=== PATIENT | female | born 1990 | race African-American/Black ===

== ENCOUNTER 2021-08-02 07:42 | Observation (INO) | payer OTHER ==
[2021-08-02] MEDS ORDERED: Morphine 4 MG/ML VIAL ONE ×3 (07:53→10:20)
[2021-08-02] MEDS ORDERED: Ondansetron PF 4 MG/2 ML Vial ONE ×3 (07:54→12:22)
[2021-08-02 08:16] LABS: #Eosinphils 0.2 10x3/uL (0.0-0.5); #Monocytes 0.4 10x3/uL (0.0-1.1); #Neutrophils 5.4 10x3/uL (1.5-8.4); %Basophils 0.5 % (0.0-2.0); %Eosinophils 3.1 % (0.0-6.0); %Lymphocytes 17.7 % (18.0-47.0); %Monocytes 4.9 % (0.0-10.0); %Neutrophils 73.4 % (40.0-75.0); Hemoglobin 13.5 g/dL (12.0-15.5); Mean Corpuscular HGB CONC 31.5 g/dL (32.0-36.0); Mean Corpuscular Hemoglobin 28.7 pg (27.0-33.0); Mean Corpuscular Volume 91.1 fl (81.6-98.3); Mean Platelet Volume 9.7 fl (7.4-10.4); Platelet Count 262 10x3/uL (150-450); RBC Distribution Width 14.2 % (11.5-14.5); White Blood Cell (WBC) Count 7.4 10x3/uL (3.5-10.5)
[2021-08-02 08:18] LABS: BHCG - Serum Negative (NEGATIVE); Pregs Control Background? CLEAR/WHITE (CLR/WHITE); Pregs Control Bar Appear? YES (CONTROL BAR)
[2021-08-02 08:25] LABS: ALT (SGPT) 28 U/L (8-55); AST (SGOT) 26 U/L (5-34); Albumin 4.1 g/dL (3.5-5.0); Alkaline Phosphatase 83 U/L (40-110); Anion Gap 12 mmol/L (10-20); BUN (Urea Nitrogen) 11 mg/dL (7.0-18.7); Bilirubin, Total 0.4 mg/dL (0.2-1.2); Calc. Creatinine Clearance 0 mL/min (70-130); Carbon Dioxide 24 mmol/L (22-29); Chloride 108 mmol/L (98-107); Globulin 3.3 g/dL (2.4-3.5); Glucose 116 mg/dL (70-105); Lipase 26 U/L (8-78); Potassium 3.7 mmol/L (3.5-5.1); Protein, Total 7.4 g/dL (6.0-8.3); Sodium 140 mmol/L (136-145)
[2021-08-02] MEDS ORDERED: Ketorolac Tromethamine 30 MG/ML VIAL ONE (08:51)
[2021-08-02 09:08] LABS: Bilirubin Neg (Negative); Blood, Urine 250 (Negative); Clarity Cloudy (Clear); Glucose, Urine (Dipstick) Normal (Negative); Ketone, Urine Negative (Negative); Leukocyte 500 (Negative); Nitrite Positive (Negative); Protein, Urine (Dipstick) 15 mg/dl (Neg-Trace); Specific Gravity, Urine 1.025 (1.002-1.036); Urobilinogen Normal mg/dL (Less than 2)
[2021-08-02 09:19] LABS: RBC/HPF 21-50 HPF (0-3); WBC/HPF Greater Than 50 HPF (0-3)
[2021-08-02 09:20] LABS: Bacteria/HPF 4+ HPF (None Seen)
[2021-08-02 09:21] LABS: Calcium Oxalate Crystals Rare HPF (None Seen)
[2021-08-02] MEDS ORDERED: cefTRIAXone\\ROCEPHIN 2 GM VIAL ONE (11:01)
[2021-08-02] MEDS ORDERED: Iopamidol 15 ML ONE (11:45)
[2021-08-02] MEDS ORDERED: Lidocaine 2% PF 5 ML VIAL ONE (12:02)
[2021-08-02] MEDS ORDERED: PROPOFOL 0 ML ONE (12:02)
[2021-08-02] MEDS ORDERED: Fentanyl 100 MCG/2 ML VIAL ONE (12:02)
[2021-08-02 12:06] LABS: SARS-CoV-2 NAA Rapid Test Not Detected (NotDetected)
[2021-08-02] MEDS ORDERED: Dexamethasone 20 MG/5 ML VIAL ONE (12:22)
[2021-08-02] MEDS ORDERED: PROPOFOL 20 ML ONE ×2 (12:24→12:25)
[2021-08-02] MEDS ORDERED: Hyoscyamine Sulfate SL 0.125 mg Tablet SL PRN (14:14)
[2021-08-02] MEDS ORDERED: diphenhydrAMINE 50 MG/ML VIAL IVP PRN (14:14)
[2021-08-02] MEDS ORDERED: Zolpidem Tartrate 5 MG TAB PO PRN (14:14)
[2021-08-02] MEDS ORDERED: Ondansetron PF 4 MG/2 ML Vial IVP PRN (14:14)
[2021-08-02] MEDS: Morphine 4 MG/ML VIAL SLOW IVP PRN ×2 (14:34→22:03)
[2021-08-02] MEDS: HYDROcodone/Acetaminophen 5/325 mg Tablet PO PRN ×2 (14:35→18:45)
[2021-08-02] MEDS ORDERED: FLU VACC QS2021-22(6MOS UP)/PF 60 MCG/0.5 ML SYRINGE IM ONE (16:15)
[2021-08-02] MEDS: Ketorolac Tromethamine 30 MG/ML VIAL IVP SCH ×2 (18:44→23:58)
[2021-08-02] MEDS: D5 1/2 NS w/20 mEq KCL 1,000 ML IV SCH ×2 (18:45→20:41)
[2021-08-02] MEDS: Docusate 100 MG CAP PO SCH (20:45)
[2021-08-03] MEDS: Ketorolac Tromethamine 30 MG/ML VIAL IVP SCH (06:11)
[2021-08-03] MEDS: D5 1/2 NS w/20 mEq KCL 1,000 ML IV SCH (06:47)
[2021-08-03 07:49] VITALS: BP 108/58; TEMP 96.5
[2021-08-03] MEDS ORDERED: Tamsulosin HCl 0.4 MG CAP PO SCH (09:00)
[2021-08-03] MEDS ORDERED: Enoxaparin Sodium 40 MG/0.4 ML SYRINGE SC SCH (09:00)
[2021-08-03] MEDS: Docusate 100 MG CAP PO SCH (09:10)
[2021-08-03] MEDS ORDERED: cefTRIAXone\\ROCEPHIN 1 GM in Sodium Chloride 0.9% 100 ML IVPB SCH (11:00)
== END 2021-08-03 10:38 | disposition home or self-care (01) ==
LOC: CSHERS 07:42 → INTOOBSV 14:11 → CSHTELE 14:11
PROVIDERS: ADMIT Urology; ATTEND Urology
PROC: 0T768DZ Dilation of Right Ureter with Intraluminal Device, Via Natural or Artificial Opening Endoscopic (ICD-10-PCS; principal; 2021-08-02)
DX: N20.1 Calculus of ureter (principal); N12 Tubulo-interstitial nephritis, not specified as acute or chronic; B96.20 Unspecified Escherichia coli [E. coli] as the cause of diseases classified elsewhere; N30.80 Other cystitis without hematuria; Z20.822 Contact with and (suspected) exposure to COVID-19
CPT/HCPCS: 36415; 74176; 76856; 80053; 81003; 81015; 83690; 84703; 85025; 87077; 87086; 87186; 96374; 96375; 96376; C2625; G0378; J0696; J1100; J1885; J2001; J2270; J2405; J2704; J3010; J3480; Q9967; U0002

== ENCOUNTER 2023-06-21 14:16 | Emergency (ER) | payer OTHER, SELFPAY ==
[2023-06-21 15:41] LABS: SARS-CoV-2 NAA Rapid Test Not Detected (NotDetected)
== END 2023-06-21 15:55 | disposition home or self-care (01) ==
LOC: CSHERS 14:16
DX: B34.9 Viral infection, unspecified (principal); Z20.822 Contact with and (suspected) exposure to COVID-19
CPT/HCPCS: 99283

== ENCOUNTER 2023-07-02 16:13 | Emergency (ER) | payer SELFPAY | END 2023-07-02 17:49 | disposition home or self-care (01) | LOC: CSHERS 16:13 | DX: B00.9 Herpesviral infection, unspecified (principal); K12.0 Recurrent oral aphthae | CPT/HCPCS: 99283 ==

== ENCOUNTER 2024-08-01 21:22 | Emergency (ER) | payer SELFPAY ==
[2024-08-02] MEDS ORDERED: Ketorolac Tromethamine 30 MG (1 mL) VIAL ONE (01:34)
[2024-08-02 01:44] LABS: #Basophils 0.03 10x3/uL (0.0-0.2); #Eosinophils 0.14 10x3/uL (0.0-0.5); #Monocytes 1.84 10x3/uL (0.0-1.1); #Neutrophils 7.89 10x3/uL (1.5-8.4); %Basophils 0.3 % (0.0-2.0); %Eosinophils 1.2 % (0.0-6.0); %Monocytes 15.7 % (0.0-10.0); %Neutrophils 67.3 % (40.0-75.0); Hematocrit 30.7 % (34.9-44.5); Hemoglobin 10.1 g/dL (12.0-15.5); Mean Corpuscular HGB CONC 32.9 g/dL (32.0-36.0); Mean Corpuscular Hemoglobin 26.9 pg (27.0-33.0); Mean Corpuscular Volume 81.9 fL (81.6-98.3); Mean Platelet Volume 11.1 fL (7.4-10.4); Platelet Count 173 10x3/uL (150-450); RBC Distribution Width 14.9 % (11.5-14.5); Red Blood Cell (RBC) Count 3.75 10x6/uL (3.90-5.03); White Blood Cell (WBC) Count 11.72 10x3/uL (3.5-10.5)
[2024-08-02 01:48] LABS: BHCG - Serum Negative (NEGATIVE); Pregs Control Background? CLEAR/WHITE (CLR/WHITE); Pregs Control Bar Appear? YES (CONTROL BAR)
[2024-08-02 01:56] LABS: ALT (SGPT) 13 U/L (8-55); AST (SGOT) 20 U/L (5-34); Albumin 2.9 g/dL (3.5-5.0); Alkaline Phosphatase 95 U/L (40-110); Anion Gap 14 mmol/L (10-20); BUN (Urea Nitrogen) 22 mg/dL (7.0-18.7); Bilirubin, Total 1.2 mg/dL (0.2-1.2); Calc. Creatinine Clearance 0 mL/min (70-130); Calcium 8.9 mg/dL (7.8-10.44); Carbon Dioxide 19 mmol/L (22-29); Chloride 103 mmol/L (98-107); Estimated GFR 73; Globulin 4.2 g/dL (2.4-3.5); Glucose 117 mg/dL (70-105); Lipase 41 U/L (8-78); Magnesium 2.3 mg/dL (1.6-2.6); Potassium 3.1 mmol/L (3.5-5.1); Protein, Total 7.1 g/dL (6.0-8.3); Sodium 133 mmol/L (136-145)
[2024-08-02 02:14] LABS: Bilirubin Neg (Negative); Blood, Urine 250 (Negative); Clarity Cloudy (Clear); Glucose, Urine (Dipstick) Normal (Negative); Ketone, Urine 5 mg/dL (Negative); Leukocyte 500 (Negative); Nitrite Negative (Negative); Protein, Urine (Dipstick) 100 mg/dl (Neg-Trace); Specific Gravity, Urine 1.015 (1.005-1.030)
[2024-08-02 02:26] LABS: Bacteria/HPF 3+ HPF (None Seen); CAUTI Indications for Culture Pelvic or flank pain; Squamous Epithelial 0-3 HPF (0-3); Transitional Epithelial 0-3 HPF (None Seen); WBC/HPF Greater Than 50 HPF (0-3)
[2024-08-02 02:27] LABS: Urine Culture Reflex Yes Yes
[2024-08-02] MEDS ORDERED: cefTRIAXone (ROCEPHIN) 1 GM VIAL ONE (03:45)
[2024-08-02] MEDS ORDERED: Potassium Chloride 20 MEQ TAB ONE (03:45)
== END 2024-08-02 07:14 | disposition home or self-care (01) ==
LOC: CSHERS 21:22
DX: N10 Acute pyelonephritis (principal); Z53.9 Procedure and treatment not carried out, unspecified reason; J06.9 Acute upper respiratory infection, unspecified
CPT/HCPCS: 71045; 80053; 81001; 83690; 83735; 84703; 85025; 87077; 87086; 87186; 87428; 96374; 96375; J0696; J1885